=== PATIENT | female | born 1975 | race Caucasian/White ===

== ENCOUNTER 2022-02-24 16:35 | Emergency (ER) | payer OTHER ==
[~2022-02-24] VITALS: Ht 149.9 cm; Wt 87.1 kg
== END 2022-02-24 18:29 | disposition home or self-care (01) ==
LOC: ER 16:35
DX: N93.9 Abnormal uterine and vaginal bleeding, unspecified (principal); N93.8 Other specified abnormal uterine and vaginal bleeding; D25.9 Leiomyoma of uterus, unspecified

== ENCOUNTER 2022-02-26 17:25 | Emergency (ER) | payer OTHER ==
[~2022-02-26] VITALS: Ht 149.9 cm; Wt 86.2 kg
== END 2022-02-26 21:44 | disposition home or self-care (01) ==
LOC: ER 17:25
DX: N93.9 Abnormal uterine and vaginal bleeding, unspecified (principal); R10.2 Pelvic and perineal pain

== ENCOUNTER 2024-10-28 16:49 | Emergency (ER) | payer OTHER ==
[~2024-10-28] VITALS: Ht 149.9 cm; Wt 102.1 kg
[2024-10-28] MEDS ORDERED: SYNTHROID50 MCG PO (17:24)
[2024-10-28] MEDS ORDERED: IPRATROPIUM/ALBUTEROL SULFATE 3 ML AMPUL.NEB IH SCH (19:30)
[2024-10-28] MEDS ORDERED: BENZONATATE 100 MG CAPSULE PO ONE (19:30)
[2024-10-28] MEDS ORDERED: METHYLPREDNISOLONE SOD SUCC 125 MG VIAL IV ONE (19:45)
[2024-10-28] MEDS ORDERED: METHYLPREDNISOLONE SOD SUCC 125 MG VIAL ONE (19:59)
[2024-10-28 20:15] LABS: HEMATOCRIT 38.8 % (36.0-45.00); HEMOGLOBIN 13.4 g/dL (12.0-15.00); MEAN CELL VOLUME 84.8 fL (80.00-100.00); MEAN CORPUSCULAR HEMOGLOBIN 29.3 pg (27.00-32.0); MEAN CORPUSCULAR HGB CONC 34.5 g/dl (32.0-36.0); PLATELET COUNT 348 K/uL (150-450); RED BLOOD COUNT 4.57 M/uL (4.00-6.00); RED CELL DISTRIBUTION WIDTH 14.4 % (11.5-14.5)
[2024-10-28 20:42] LABS: ALBUMIN 3.6 gm/dL (3.4-5.0); BILIRUBIN TOTAL 0.19 mg/dL (0.3-1.2); CALCIUM 9.2 mg/dL (8.5-10.1); CREATININE SERUM 0.8 mg/dL (0.55-1.02); GFR 76.88; GLOBULINA 3.6 G/DL (2.4-3.5); POTASSIUM 4.38 mEq/L (3.5-5.1); TOTAL PROTEIN 7.2 gm/dL (6.4-8.2)
[2024-10-28] MEDS ORDERED: IPRATROPIUM/ALBUTEROL SULFATE 3 ML AMPUL.NEB IH ONE (21:44)
== END 2024-10-28 22:53 | disposition home or self-care (01) ==
LOC: ER 16:51
PROVIDERS: Preventive Medicine Public Health & General Preventive Medicine
DX: B34.9 Viral infection, unspecified (principal); J45.909 Unspecified asthma, uncomplicated; G47.33 Obstructive sleep apnea (adult) (pediatric); Z91.018 Allergy to other foods; U09.9 Post COVID-19 condition, unspecified
CPT/HCPCS: 36415; 71046; 94640; 99284; J3490

== ENCOUNTER 2024-12-12 12:13 | Emergency (ER) | payer OTHER ==
[~2024-12-12] VITALS: Ht 149.9 cm; Wt 104.3 kg
[~2024-12-12 12:13] MED LIST: SYNTHROID50 MCG PO
[2024-12-12] MEDS ORDERED: SUMATRIPTAN SUCCINATE 6 MG/0.5 ML VIAL SUBCUTANEO ONE ×2 (15:00→15:34)
[2024-12-12] MEDS ORDERED: METOCLOPRAMIDE HCL 5 MG/ML VIAL IV ONE (15:15)
[2024-12-12] MEDS ORDERED: KETOROLAC TROMETHAMINE 30 MG VIAL IV ONE (15:15)
[2024-12-12] MEDS ORDERED: METOCLOPRAMIDE HCL 5 MG/ML VIAL ONE (15:34)
[2024-12-12] MEDS ORDERED: KETOROLAC TROMETHAMINE 30 MG VIAL ONE (15:34)
[2024-12-12 15:35] LABS: HEMATOCRIT 42.9 % (36.0-45.00); HEMOGLOBIN 14.5 g/dL (12.0-15.00); MEAN CORPUSCULAR HEMOGLOBIN 28.8 pg (27.00-32.0); MEAN CORPUSCULAR HGB CONC 33.9 g/dl (32.0-36.0); PLATELET COUNT 305 K/uL (150-450); RED BLOOD COUNT 5.04 M/uL (4.00-6.00); RED CELL DISTRIBUTION WIDTH 14.7 % (11.5-14.5)
[2024-12-12 15:58] LABS: ALBUMIN 3.4 gm/dL (3.4-5.0); BILIRUBIN TOTAL 0.32 mg/dL (0.3-1.2); CALCIUM 9.3 mg/dL (8.5-10.1); CREATININE SERUM 0.61 mg/dL (0.55-1.02); GFR 105.13; POTASSIUM 3.7 mEq/L (3.5-5.1); TOTAL PROTEIN 7.4 gm/dL (6.4-8.2)
== END 2024-12-12 18:04 ==
LOC: ER 12:16
PROVIDERS: Preventive Medicine Public Health & General Preventive Medicine
DX: G43.909 Migraine, unspecified, not intractable, without status migrainosus (principal); Z20.822 Contact with and (suspected) exposure to COVID-19; E03.9 Hypothyroidism, unspecified; G47.30 Sleep apnea, unspecified; Z91.018 Allergy to other foods

== ENCOUNTER → 2025-10-30 | Emergency (ER) | payer OTHER ==
[~2025-10-30] VITALS: Ht 149.9 cm; Wt 98.4 kg
[~2025-10-30] MED LIST changes: +ACETAMINOPHEN 500 MG GEL..CAP PO ONE; +CLINDAMYCIN PHOSPHATE 150 MG/ML (600mg) IM ONE; +KETOROLAC TROMETHAMINE 30 MG VIAL IM ONE; +MUCINEX D ER 11 EACH PO; +PHENAGIL TABLE1 EACH PO
[2025-10-30 10:22] VITALS: BP 132/84; O2SAT 97
== END | disposition home or self-care (01) ==
LOC: ER 09:10
DX: H65.191 Other acute nonsuppurative otitis media, right ear (principal); Z91.048 Other nonmedicinal substance allergy status
CPT/HCPCS: 96372; 99282; J1885; J3490